=== PATIENT | female | born 1990 | race Caucasian/White ===

== ENCOUNTER → 2016-07-04 | Outpatient (CLI) | payer BC, MEDICAID | END | disposition home or self-care (01) | LOC: RAD.S 10:06 | DX: N91.1 Secondary amenorrhea (principal); N85.6 Intrauterine synechiae ==

== ENCOUNTER 2016-09-03 01:47 | Emergency (ER) | payer BC, MEDICAID ==
--- NOTE | 2016-09-03 07:09 | ER ---
ADMIT: 09/03/2016 RM/LOC: ER [facility] MR#: [id number] [place], [place] [id number] VIRYCynthia KATIANA Londono [address] [address] Emergency Room Report SEX: F AGE: 26 : 1990 DATE: 09/03/2016 The patient is a 26-year-old, 7-week female, complaining of respiratory distress for the past 5 hours, has been using her albuterol MDI as needed. Exam remarkable for nontoxic, afebrile, obese female. Audible wheezes. Treated with 4 DuoNeb, 60 mg prednisone load, and 60 mg daily x5 days. Increase albuterol at home. Follow up Dr. Ramirez as needed. Vignesh Cordero MD/ modl JOB #: [id number] CC: Vignesh Cordero MD, Attending Physician Hemant Ramirez MD, Family Physician Hemant Ramirez MD
== END 2016-09-03 02:56 | disposition home or self-care (01) ==
LOC: ER 01:47
DX: J45.909 Unspecified asthma, uncomplicated (principal); Z88.0 Allergy status to penicillin; Z79.899 Other long term (current) drug therapy

== ENCOUNTER 2016-09-17 09:47 | Emergency (ER) | payer BC, MEDICAID ==
--- NOTE | 2016-09-18 16:20 | ER ---
ADMIT: 09/17/2016 RM/LOC: ER [facility] MR#: [id number] [id number] [place], [place] [id number] KATIANA DAMON [address] [address] Emergency Room Report SEX: F AGE: 26 : 1990 DATE: 09/17/2016 ADDENDUM: CHIEF COMPLAINT: Shortness of breath. HISTORY OF PRESENT ILLNESS: This is a 26-year-old female who had shortness of breath, progressively worsening over the last 4 days. She does have a history of asthma. She has been using her inhaler quite often. She, at this time, has used up her inhaler and the shortness of breath is not improving. She is also , she has had a little bit of spotting, so she is concerned about that. COURSE IN THE EMERGENCY ROOM: Beta HCG was done along with her blood type. Her beta HCG is elevated higher than 60,000. Her blood type is O positive. I am discharging her home with amoxicillin, prednisone, and albuterol. Told her to return to the ER if she develops increased shortness of breath or if she is bleeding through 2 pads in 2 consecutive hours. Otherwise to follow up with her OB in a couple days to recheck. CLINICAL IMPRESSION: 1. Asthma, acute exacerbation with acute bronchitis. 2. Threatened . EMILY Macias / Og Travis MD / mojgan JOB #: [id number] CC: Og Travis MD, Attending Physician
== END 2016-09-17 11:40 | disposition home or self-care (01) ==
LOC: ER 09:47
DX: O20.0 Threatened abortion (principal); O99.511 Diseases of the respiratory system complicating pregnancy, first trimester; J45.901 Unspecified asthma with (acute) exacerbation; Z3A.09 9 weeks gestation of pregnancy; Z79.899 Other long term (current) drug therapy; Z88.0 Allergy status to penicillin